=== PATIENT | male | born 1990 | race Caucasian/White ===

== ENCOUNTER → 2016-11-10 | Outpatient (CLI) | payer BC, OTHER ==
[~2016-11-10] MED LIST: CEPHALEXIN500 M1 PO; NO HOME MEDICATIONS
== END ==
LOC: COL.RAD 07:13
DX: K80.20 Calculus of gallbladder without cholecystitis without obstruction (principal); R19.7 Diarrhea, unspecified

== ENCOUNTER → 2016-11-17 | Outpatient (CLI) | payer BC, OTHER | LOC: COL.RAD 06:04 | DX: K80.20 Calculus of gallbladder without cholecystitis without obstruction (principal) | CPT/HCPCS: A9537 ==

== ENCOUNTER → 2016-12-02 | Outpatient (CLI) | payer BC, OTHER | LOC: COL.VAS 10:00 | DX: I28.8 Other diseases of pulmonary vessels (principal) ==

== ENCOUNTER → 2017-04-07 | Outpatient (CLI) | payer BC, OTHER | LOC: COL.RAD 08:54 | DX: S43.431S Superior glenoid labrum lesion of right shoulder, sequela (principal); Y93.B9 Activity, other involving muscle strengthening exercises | CPT/HCPCS: A9585; J3301; Q9967 ==